=== PATIENT | male | born 1980 | race African-American/Black ===

== ENCOUNTER 2016-05-19 18:19 | Emergency (ER) | payer OTHER ==
[~2016-05-19] VITALS: Ht 182.9 cm; Wt 195.2 kg
[~2016-05-19 18:19] MED LIST: ADVAIR 250/501 DISK IH; ADVAIR 500/501 DISK IH; ADVAIR HFA120 INHALA IH; AMBIEN10 MG PO; ASPIRIN81 M2 PO; Aspirin E.C. PO; BENICAR HCT 201 EACH PO; CARVEDILOL25 MG PO; DIGOXIN125 MCG PO; DIOVAN40 MG PO; FISH OIL 1,0001 EAC7 PO; FUROSEMIDE40 MG PO; JANUMET 50/11 TABLET PO; LASIX40 MG PO; LEVAQUIN750 MG PO; LEVOFLOXACIN750 MG PO; METFORMIN HCL850 MG PO; PERCOCET 5/31 TABLET PO; PREDNISONE10 MG PO; SORE THROAT SP177 M1 MM; TRAMADOL HCL50 MG PO; TRICOR145 MG PO; VALSARTAN-HCTZ1 EAC1 PO; VALSARTAN-HCTZ1 EAC3 PO; VENTOLIN HFA18 GM IH; [UNRECOGNIZED DRUG - OTHER] PO
[2016-05-19 19:40] LABS: HEMATOCRIT 37.5 % (38.0-50.0); MCH 26.9 PG (29.0-34.0); MCHC 30.1 G/DL (30.0-36.0); MCV 89.3 FL (86-99); MEAN PLAT.VOLUME 10.5 uM^3 (9.0-12.4); PLATELET COUNT 392 K/uL (156-360); RBC DIS.WIDTH-SD 41.7 % (39-53); WHITE BLOOD COUNT 12.3 K/uL (4.1-10.2)
[2016-05-19 19:51] LABS: CHLORIDE 105 mEq/L (99-109)
[2016-05-19 19:52] LABS: SODIUM 140 mEq/L (136-147)
[2016-05-19 19:53] LABS: GLUCOSE 122 mg/dL (70-99)
[2016-05-19 19:55] LABS: ANION GAP 9 MEQ/L (2-14)
[2016-05-19 19:57] LABS: GFR ESTIMATE (CALCULATED) > 59 mL/min/
[2016-05-19 19:58] LABS: UREA NITROGEN (BUN) 12 mg/dL (9-23)
[2016-05-19 20:01] LABS: TROP-I INTERPRETATION NEGATIVE; TROPONIN-I < 0.01 ng/mL (0.0-0.30)
[2016-05-19] MEDS ORDERED: LEVEMIR FL100 UNIT/1 SC (20:48)
[2016-05-19] MEDS ORDERED: VICTOZA 2-0.6 MG/0.1 SC (20:48)
[2016-05-19] MEDS ORDERED: BUPROPION HCL100 M1 PO (20:49)
[2016-05-19] MEDS ORDERED: NALTREXONE HCL50 MG PO (20:49)
[2016-05-19 23:40] LABS: TROP-I INTERPRETATION NEGATIVE; TROPONIN-I < 0.01 ng/mL (0.0-0.30)
[2016-05-19 23:43] VITALS: BP 137/92
== END 2016-05-19 23:45 | disposition home or self-care (01) ==
LOC: EME 18:19 → RME 18:19
PROVIDERS: Nurse Practitioner Family
DX: R07.9 Chest pain, unspecified (principal); I10 Essential (primary) hypertension; E78.5 Hyperlipidemia, unspecified; E11.9 Type 2 diabetes mellitus without complications; J45.909 Unspecified asthma, uncomplicated; Z79.82 Long term (current) use of aspirin; Z79.4 Long term (current) use of insulin; Z99.81 Dependence on supplemental oxygen
CPT/HCPCS: 71020; 80048; 84484; 85027; 93005; 99281; 99284

== ENCOUNTER 2016-06-27 22:51 | Emergency (ER) | payer OTHER ==
[~2016-06-27] VITALS: Ht 182.9 cm; Wt 189.1 kg
[~2016-06-27 22:51] MED LIST changes: +BUPROPION HCL100 M1 PO; +LEVEMIR FL100 UNIT/1 SC; +NALTREXONE HCL50 MG PO; +VICTOZA 2-0.6 MG/0.1 SC
[2016-06-28] MEDS ORDERED: ZITHROMAX250 MG PO (00:31)
[2016-06-28 00:41] VITALS: BP 130/64
== END 2016-06-28 00:42 | disposition home or self-care (01) ==
LOC: EME 22:51
DX: J45.31 Mild persistent asthma with (acute) exacerbation (principal); J44.9 Chronic obstructive pulmonary disease, unspecified; I11.0 Hypertensive heart disease with heart failure; I50.9 Heart failure, unspecified; K21.9 Gastro-esophageal reflux disease without esophagitis; E78.5 Hyperlipidemia, unspecified
CPT/HCPCS: 71020; 99281; 99283; J8540

== ENCOUNTER 2017-09-17 17:26 | Inpatient (IN) | payer OTHER ==
[~2017-09-17] VITALS: Ht 182.9 cm; Wt 194.4 kg
[~2017-09-17 17:26] MED LIST changes: -BUPROPION HCL100 M1 PO; +WELLBUTRIN SR150 MG PO; +ZITHROMAX250 MG PO
[2017-09-17 18:38] LABS: HEMATOCRIT 39.7 % (38.0-50.0); HEMOGLOBIN 12.4 G/DL (12.5-16.6); MCH 27.7 PG (29.0-34.0); MCHC 31.2 G/DL (30.0-36.0); MCV 88.8 FL (86-99); PLATELET COUNT 382 K/uL (156-360); RBC DIS.WIDTH-CV 12.7 % (11.8-14.6); RBC DIS.WIDTH-SD 41.7 % (39-53); RED BLOOD COUNT 4.47 M/uL (4.00-5.50); WHITE BLOOD COUNT 11.9 K/uL (4.1-10.2)
[2017-09-17 18:56] LABS: CHLORIDE 102 mEq/L (99-109); POTASSIUM 4.1 mEq/L (3.7-5.4); SODIUM 142 mEq/L (136-147)
[2017-09-17 18:58] LABS: GLUCOSE 136 mg/dL (70-99)
[2017-09-17 19:02] LABS: CREATININE 1.2 mg/dL (0.6-1.3); GFR ESTIMATE (CALCULATED) > 59 mL/min/ (58.99-99999); UREA NITROGEN (BUN) 13 mg/dL (9-23)
[2017-09-17 19:12] LABS: TROP-I INTERPRETATION NEGATIVE; TROPONIN-I < 0.01 ng/mL (0.0-0.30)
[2017-09-17] MEDS ORDERED: FISH OIL 1,0001 EAC7 PO (19:45)
[2017-09-17] MEDS ORDERED: ALBUTEROL2.5 MG/3 M IH (19:46)
[2017-09-17] MEDS ORDERED: NIZORAL 2% CREA15 GM TP (19:48)
[2017-09-17] MEDS ORDERED: TRULICITY1.5 MG/0.5 SC (19:48)
[2017-09-17 22:41] VITALS: BP 133/71
[2017-09-18 04:06] VITALS: BP 115/58
[2017-09-18 06:45] LABS: HEMOGLOBIN 12.2 G/DL (12.5-16.6); MCH 27.1 PG (29.0-34.0); MCHC 30.5 G/DL (30.0-36.0); MCV 88.7 FL (86-99); PLATELET COUNT 396 K/uL (156-360); RBC DIS.WIDTH-CV 12.6 % (11.8-14.6); RBC DIS.WIDTH-SD 41.1 % (39-53); RED BLOOD COUNT 4.51 M/uL (4.00-5.50); WHITE BLOOD COUNT 10.4 K/uL (4.1-10.2)
[2017-09-18 07:07] LABS: CHLORIDE 100 MEQ/L (99-109); CREATININE 1.2 MG/DL (0.6-1.3); GFR ESTIMATE (CALCULATED) > 59 mL/min/ (58.99-99999); POTASSIUM 4.6 MEQ/L (3.7-5.4); SODIUM 138 MEQ/L (136-147); UREA NITROGEN (BUN) 16 mg/dL (9-23)
[2017-09-18 07:08] LABS: GLUCOSE 219 mg/dL (70-99)
[2017-09-18 07:38] LABS: ABS NEUTROPHIL COUNT 8.8; ATYPICAL LYMPHOCYTE 0.9 %; BAND NEUTROPHILS 1.7 % (0-8.0); EOSINOPHIL ABS CT 0; LYMPHOCYTES 13.9 % (15.0-45.0); MYELOCYTES 0.9 %; PLAT.SUFFICIENCY INCREASED; SEG.NEUTROPHILS 82.6 % (46.0-76.0)
[2017-09-18 07:47] VITALS: BP 134/96
[2017-09-18 12:14] VITALS: BP 144/81
[2017-09-18 15:53] VITALS: BP 136/90
[2017-09-18 20:17] VITALS: BP 138/78
[2017-09-19 00:15] VITALS: BP 126/68
[2017-09-19 03:35] VITALS: BP 111/56
[2017-09-19 05:38] LABS: BASOPHIL (%) 0.1 % (0-1); EOSINOPHIL (%) 0 % (0-5); HEMATOCRIT 39.9 % (38.0-50.0); HEMOGLOBIN 12.2 G/DL (12.5-16.6); IMMATURE GRANULOCYTE (%) 0.5 % (0.0-0.7); LYMPHOCYTE (%) 11.8 % (15-42); LYMPHOCYTE COUNT 2.3 K/uL (1.0-2.8); MCH 26.9 PG (29.0-34.0); MCHC 30.6 G/DL (30.0-36.0); MCV 87.9 FL (86-99); MONOCYTE (%) 3.1 % (3-12); MONOCYTE COUNT 0.6 K/uL (0-0.8); NEUTROPHIL (%) 84.5 % (45-76); NEUTROPHIL COUNT 16.4 K/uL (1.8-6.4); PLATELET COUNT 439 K/uL (156-360); RBC DIS.WIDTH-CV 12.6 % (11.8-14.6); RBC DIS.WIDTH-SD 40.2 % (39-53); RED BLOOD COUNT 4.54 M/uL (4.00-5.50); WHITE BLOOD COUNT 19.4 K/uL (4.1-10.2)
[2017-09-19 06:09] LABS: CHLORIDE 99 MEQ/L (99-109); CREATININE 1.2 MG/DL (0.6-1.3); GFR ESTIMATE (CALCULATED) > 59 mL/min/ (58.99-99999); GLUCOSE 301 mg/dL (70-99); POTASSIUM 4.8 MEQ/L (3.7-5.4); SODIUM 137 MEQ/L (136-147); UREA NITROGEN (BUN) 20 mg/dL (9-23)
[2017-09-19 07:42] VITALS: BP 134/77
[2017-09-19 11:34] VITALS: BP 151/85
[2017-09-19] MEDS ORDERED: LEVAQUIN500 MG PO (12:32)
[2017-09-19] MEDS ORDERED: PREDNISONE10 MG PO (12:32)
== END 2017-09-19 13:15 | disposition home or self-care (01) | DRG 202 ==
LOC: EME 17:26 → EXP 17:26 → EDOF 19:20 → 2EAST 19:20 → ENRESERV 20:09 → 2EAST 22:26
PROVIDERS: Family Medicine; Nurse Practitioner Family
PROC: 5A09357 Assistance with Respiratory Ventilation, Less than 24 Consecutive Hours, Continuous Positive Airway Pressure (ICD-10-PCS; principal; 2017-09-18)
DX: J20.9 Acute bronchitis, unspecified (principal); J45.901 Unspecified asthma with (acute) exacerbation; G47.33 Obstructive sleep apnea (adult) (pediatric); I11.0 Hypertensive heart disease with heart failure; I50.9 Heart failure, unspecified; Z68.43 Body mass index [BMI] 50.0-59.9, adult; E66.01 Morbid (severe) obesity due to excess calories; I42.9 Cardiomyopathy, unspecified; E11.9 Type 2 diabetes mellitus without complications; E78.5 Hyperlipidemia, unspecified; F17.200 Nicotine dependence, unspecified, uncomplicated; G89.29 Other chronic pain; M19.90 Unspecified osteoarthritis, unspecified site; K21.9 Gastro-esophageal reflux disease without esophagitis; Z87.01 Personal history of pneumonia (recurrent)
CPT/HCPCS: 71046; 80048; 82948; 83880; 84484; 85025; 85027; 93005; 94640; 94640 76; 94660; 99202; 99281; 99285; J1650; J1815; J1940; J1956; J2930; J7512